=== PATIENT | male | born 1960 | race Caucasian/White ===

== ENCOUNTER 2017-01-16 23:51 | Emergency (ER) | payer SELFPAY ==
[2017-01-17 00:12] VITALS: TEMP 99.4; BMI 28.1
--- NOTE | 2017-01-17 00:16 | ED PDOC ---
Arrival/HPI - General Time Seen by Provider: 01/17/17 00:11 Historian: Patient - History of Present Illness Narrative History of Present Illness (Text): 01/17/17 00:15 Emerson Dumont is a 56 year old male who presents to the ED complaining of shoulder pain s/ fall. Patient states he slipped and fell 2 months ago and he caught himself with his arms outstretched. Patient now complaining of bilateral shoulder pain, neck pain, and lower back pain. Patient also notes an intermittent headache. Patient denies any fever, chills, chest pain, shortness of breath, nausea, vomiting, diarrhea, urinary symptoms, weakness/numbness/tingling in the extremity, saddle paresthesias, dizziness, or any other complaints. Time/Duration: Other (2 months) Symptom Onset: Gradual Symptom Course: Unchanged Activities at Onset: Light Context: Other (DA) Past Medical History - Provider Review Nursing Documentation Reviewed: Yes - Infectious Disease Hx of Infectious Diseases: None - Tetanus Immunization Tetanus Immunization: Unknown - Cardiac Hx Cardiac Disorders: No - Pulmonary Hx Respiratory Disorders: Yes Hx Asthma: Yes - Neurological Hx Neurological Disorder: No - HEENT Hx HEENT Disorder: No - Renal Hx Renal Disorder: No - Endocrine/Metabolic Hx Endocrine Disorders: No - Hematological/Oncological Hx Blood Disorders: No - Integumentary Hx Dermatological Disorder: No - Musculoskeletal/Rheumatological Hx Musculoskeletal Disorders: No - Gastrointestinal Hx Gastrointestinal Disorders: Yes Hx Diverticulitis: Yes - Genitourinary/Gynecological Hx Genitourinary Disorders: No - Psychiatric Hx Psychophysiologic Disorder: No Hx Substance Use: No - Past Surgical History Past Surgical History: No Previous - Suicidal Assessment Feels Threatened In Home Enviroment: No Family/Social History - Physician Review Nursing Documentation Reviewed: Yes Family/Social History: No Known Family HX Smoking Status: Light Smoker < 10 Cigarettes Daily Hx Alcohol Use: Yes Hx Substance Use: No Hx Substance Use Treatment: No Allergies/Home Meds Allergies/Adverse Reactions: Allergies No Known Allergies Allergy (Verified 08/18/15 02:01) Home Medications: Home Meds Medication Instructions Recorded Confirmed Metoclopramide Hydrochloride 10 mg PO TID 04/20/15 08/18/15 [Metoclopramide] Albuterol Sulfate [Proair Hfa] 2 puff INH PRN PRN 08/18/15 08/18/15 Review of Systems - Physician Review All systems were reviewed & negative as marked: Yes - Review of Systems Constitutional: Normal. absent: Fevers Eyes: Normal ENT: Normal Respiratory: Normal. absent: SOB, Cough Cardiovascular: Normal. absent: Chest Pain Gastrointestinal: Normal. absent: Abdominal Pain, Diarrhea, Nausea Genitourinary Male: Normal. absent: Dysuria, Frequency, Urinary Output Changes Musculoskeletal: Back Pain, Neck Pain, Other (+bilateral shoulder pain) Skin: Normal Neurological: Headache. absent: Dizziness Endocrine: Normal Hemo/Lymphatic: Normal Psychiatric: Normal Physical Exam Vital Signs Reviewed: Yes Vital Signs Temp Pulse Resp BP Pulse Ox 01/17/17 02:30 78 16 124/72 99 01/17/17 00:11 99.4 F 71 18 128/73 98 Temperature: Afebrile Blood Pressure: Normal Pulse: Regular Respiratory Rate: Normal Appearance: Positive for: Well-Appearing, Non-Toxic, Comfortable Pain Distress: None Mental Status: Positive for: Alert and Oriented X 3 - Systems Exam Head: Present: Atraumatic, Normocephalic Pupils: Present: PERRL Extroacular Muscles: Present: EOMI Conjunctiva: Present: Normal Mouth: Present: Moist Mucous Membranes Neck: Present: Normal Range of Motion. No: Meningeal Signs, MIDLINE TENDERNESS , Paraspinal Tenderness Respiratory/Chest: Present: Clear to Auscultation, Good Air Exchange. No: Respiratory Distress, Accessory Muscle Use Cardiovascular: Present: Regular Rate and Rhythm, Normal S1, S2. No: Murmurs Abdomen: Present: Normal Bowel Sounds. No: Tenderness, Distention, Peritoneal Signs Back: Present: Normal Inspection. No: CVA Tenderness, Midline Tenderness, Paraspinal Tenderness Upper Extremity: Present: Normal Inspection. No: Cyanosis, Edema Lower Extremity: Present: Normal Inspection. No: Edema Neurological: Present: GCS=15, CN II-XII Intact, Speech Normal Skin: Present: Warm, Dry, Normal Color. No: Rashes Psychiatric: Present: Alert, Oriented x 3, Normal Insight, Normal Concentration Medical Decision Making ED Course and Treatment: 01/17/17 00:15 Impression: 56 year old male complaining of bilateral shoulder pain, neck pain, lower back pain for 2 months. Plan: -- CT Head w/o contrast -- CT Cervical Spine w/o contrast -- CT Lumbar Spine w/o contrast -- Reassess and disposition Progress Notes: 01/17/17 00:35 Pt reports he has a hx of diverticulitis and requesting CT. Will order CT Abdomen and Pelvis. 01/17/17 01:35 Reviewed radiology, CT Head shows: 1. No intracranial hemorrhage. 2. Incidental/non-acute findings are described above. CT Cervical Spine shows: 1. No fracture. 2. Incidental/non-acute findings are described above. CT Lumbar Spine shows: 1. No fracture. 2. Incidental/non-acute findings are described above. CT Abdomen and Pelvis shows: 1. No noncontrast CT evidence of visceral injury. 2. Incidental/non-acute findings are described above. 01/17/17 01:50 On re-evaluation, the patient feels better and is in no acute distress. I have discussed the results and plan with the patient, who expresses understanding. Patient in agreement with plan to discharged home. Patient is stable for discharge. Patient was instructed to follow up with physician/clinic in 1-2 days or return if symptoms worsen or new concerning symptoms arise. Reassessment Condition: Re-examined, Improved - RAD Interpretation Narrative RAD Interpretations (Text): CT Head shows: Brain: No intracranial hemorrhage. No mass. No edema. Ventricles: No hydrocephalus. Bones/joints: No acute fracture. Soft tissues: Unremarkable. Sinuses: Scattered minimal mucosal thickening. Mastoid air cells: No mastoid effusion. Orbits: Unremarkable as visualized. IMPRESSION: 1. No intracranial hemorrhage. 2. Incidental/non-acute findings are described above. CT Cervical Spine shows: Vertebrae: No acute fracture. Straightening of cervical spine. Discs/spinal canal/neural foramina: No significant spinal canal stenosis. Soft tissues: Unremarkable. Lung apices: Unremarkable as visualized. IMPRESSION: 1. No fracture. 2. Incidental/non-acute findings are described above. CT Lumbar Spine shows: Vertebrae: No acute fracture. Anterolisthesis of L5 on S1. Chronic L5 pars defects. Discs/spinal canal/neural foramina: Moderate to severe degenerative disc disease at L5-S1 level. Soft tissues: Unremarkable. Other findings: See abdomen CT report for additional details. IMPRESSION: 1. No fracture. 2. Incidental/non-acute findings are described above. CT Abdomen and Pelvis shows: Limitations: Lack of intravenous contrast. Streak artifact - mild. Motion artifact - mild. Lower thorax: Mild cardiomegaly. Minimal atelectasis. ABDOMEN: Liver: Unremarkable. Gallbladder and bile ducts: No calcified stones. No ductal dilation. Pancreas: Unremarkable. No ductal dilation. Spleen: No splenomegaly. Adrenals: No mass. Kidneys and ureters: No renal calculi. No hydronephrosis. Stomach and bowel: Cecum within LEFT paramidline region. Scattered diverticula within colon. No associated inflammatory stranding. No definite mural thickening. No obstruction. Appendix: Normal caliber. No inflammation. PELVIS: Bladder: Unremarkable. No stones. Reproductive: Unremarkable as visualized. ABDOMEN and PELVIS: Intraperitoneal space: No significant fluid collection. No free air. Bones/joints: Chronic L5 pars defects with anterolisthesis. Degenerative changes of lower lumbar spine. No acute fracture. Soft tissues: Small lipoma LEFT lateral abdominal wall. Vasculature: Unremarkable. No abdominal aortic aneurysm. Lymph nodes: No pathologically enlarged lymph nodes. IMPRESSION: 1. No noncontrast CT evidence of visceral injury. 2. Incidental/non-acute findings are described above. Radiology Orders: 01/17/17 00:14 CERVICAL SPINE W/O CONTRAST [CT] Stat HEAD W/O CONTRAST [CT] Stat LUMBAR SPINE W/O CONTRAST [CT] Stat 01/17/17 00:35 ABD & PELVIS W/O PO OR IV CONT [CT] Stat Electrician Front: Radiologist - Scribe Statement The provider has reviewed the documentation as recorded by the Nandini Horton Provider Attestation: All medical record entries made by the Jocyibeileen were at my direction and personally dictated by me. I have reviewed the chart and agree that the record accurately reflects my personal performance of the history, physical exam, medical decision making, and the department course for this patient. I have also personally directed, reviewed, and agree with the discharge instructions and disposition. Disposition/Present on Arrival - Present on Arrival Any Indicators Present on Arrival: No History of DVT/PE: No History of Uncontrolled Diabetes: No Urinary Catheter: No History Surgical Site Infection Following: None - Disposition Have Diagnosis and Disposition been Completed?: Yes Diagnosis: Cervical strain, acute, Lumbar back sprain Disposition: HOME/ ROUTINE Disposition Time: 01:49 Condition: GOOD Discharge Instructions (ExitCare): Soft Cervical Collar (ED), Cervical Strain ( DC), Back Pain (ED) Print Language: NEPALESE Prescriptions: Cyclobenzaprine [Cyclobenzaprine HCl] 10 mg PO TID #21 tab
--- NOTE | 2017-01-17 01:22 | CT ---
EXAM: CT Head Without Intravenous Contrast CLINICAL HISTORY: 56 years old, male; Pain; Headache; Headache not specified; Additional info: Fall TECHNIQUE: Axial computed tomography images of the head/brain without intravenous contrast. This CT exam was performed using one or more of the following dose reduction techniques: automated exposure control, adjustment of the mA and/or kV according to patient size, and/or use of iterative reconstruction technique. COMPARISON: No relevant prior studies available. FINDINGS: Brain: No intracranial hemorrhage. No mass. No edema. Ventricles: No hydrocephalus. Bones/joints: No acute fracture. Soft tissues: Unremarkable. Sinuses: Scattered minimal mucosal thickening. Mastoid air cells: No mastoid effusion. Orbits: Unremarkable as visualized. IMPRESSION: 1. No intracranial hemorrhage. 2. Incidental/non-acute findings are described above.
--- NOTE | 2017-01-17 01:24 | CT ---
EXAM: CT Cervical Spine Without Intravenous Contrast CLINICAL HISTORY: 56 years old, male; Pain; Neck pain; Additional info: Fall TECHNIQUE: Axial computed tomography images of the cervical spine without intravenous contrast. This CT exam was performed using one or more of the following dose reduction techniques: automated exposure control, adjustment of the mA and/or kV according to patient size, and/or use of iterative reconstruction technique. Coronal and sagittal reformatted images were created and reviewed. COMPARISON: No relevant prior studies available. FINDINGS: Vertebrae: No acute fracture. Straightening of cervical spine. Discs/spinal canal/neural foramina: No significant spinal canal stenosis. Soft tissues: Unremarkable. Lung apices: Unremarkable as visualized. IMPRESSION: 1. No fracture. 2. Incidental/non-acute findings are described above.
--- NOTE | 2017-01-17 01:26 | CT ---
EXAM: CT Lumbar Spine Without Intravenous Contrast CLINICAL HISTORY: 56 years old, male; Pain; Low back pain; Additional info: Fall TECHNIQUE: Axial computed tomography images of the lumbar spine without intravenous contrast. This CT exam was performed using one or more of the following dose reduction techniques: automated exposure control, adjustment of the mA and/or kV according to patient size, and/or use of iterative reconstruction technique. Coronal and sagittal reformatted images were created and reviewed. COMPARISON: No relevant prior studies available. FINDINGS: Vertebrae: No acute fracture. Anterolisthesis of L5 on S1. Chronic L5 pars defects. Discs/spinal canal/neural foramina: Moderate to severe degenerative disc disease at L5-S1 level. Soft tissues: Unremarkable. Other findings: See abdomen CT report for additional details. IMPRESSION: 1. No fracture. 2. Incidental/non-acute findings are described above.
--- NOTE | 2017-01-17 01:31 | CT ---
EXAM: CT Abdomen and Pelvis Without Intravenous Contrast CLINICAL HISTORY: 56 years old, male; Pain; Abdominal pain; Generalized; Additional info: Abd pain TECHNIQUE: Axial computed tomography images of the abdomen and pelvis without intravenous contrast. This CT exam was performed using one or more of the following dose reduction techniques: automated exposure control, adjustment of the mA and/or kV according to patient size, and/or use of iterative reconstruction technique. Coronal and sagittal reformatted images were created and reviewed. COMPARISON: No relevant prior studies available. FINDINGS: Limitations: Lack of intravenous contrast. Streak artifact - mild. Motion artifact - mild. Lower thorax: Mild cardiomegaly. Minimal atelectasis. ABDOMEN: Liver: Unremarkable. Gallbladder and bile ducts: No calcified stones. No ductal dilation. Pancreas: Unremarkable. No ductal dilation. Spleen: No splenomegaly. Adrenals: No mass. Kidneys and ureters: No renal calculi. No hydronephrosis. Stomach and bowel: Cecum within LEFT paramidline region. Scattered diverticula within colon. No associated inflammatory stranding. No definite mural thickening. No obstruction. Appendix: Normal caliber. No inflammation. PELVIS: Bladder: Unremarkable. No stones. Reproductive: Unremarkable as visualized. ABDOMEN and PELVIS: Intraperitoneal space: No significant fluid collection. No free air. Bones/joints: Chronic L5 pars defects with anterolisthesis. Degenerative changes of lower lumbar spine. No acute fracture. Soft tissues: Small lipoma LEFT lateral abdominal wall. Vasculature: Unremarkable. No abdominal aortic aneurysm. Lymph nodes: No pathologically enlarged lymph nodes. IMPRESSION: 1. No noncontrast CT evidence of visceral injury. 2. Incidental/non-acute findings are described above.
[2017-01-17 02:31] VITALS: BP 124/72; PULSE 78; RESP 16; O2SAT 99
== END 2017-01-17 02:30 | disposition home or self-care (01) ==
LOC: ED 23:51
DX: S33.5XXA Sprain of ligaments of lumbar spine, initial encounter (principal); S16.1XXA Strain of muscle, fascia and tendon at neck level, initial encounter; W01.0XXA Fall on same level from slipping, tripping and stumbling without subsequent striking against object, initial encounter; F17.210 Nicotine dependence, cigarettes, uncomplicated